=== PATIENT | female | born 1995 | race Two or more races ===

== ENCOUNTER 2024-07-18 23:00 | Emergency (ER) | payer MEDICAID, SELFPAY ==
[2024-07-18 23:00] VITALS: BMI 31.6
[2024-07-18 23:04] VITALS: BP 152/99; PULSE 78; RESP 18; TEMP 36.7; O2SAT 99
--- NOTE | 2024-07-18 23:10 | XR_ITS ---
Examination: Ultrasound soft tissue neck Technique: Multiple high-resolution grayscale sonographic images soft tissue neck Exam date and time: July 28, 2024 1122 hrs. Indications: Right-sided neck pain beginning one week ago. Findings: No cystic or solid mass noted, no lymphadenopathy noted Impression: Negative examination
--- NOTE | 2024-07-18 23:10 | XR_ITS ---
Examination: Thyroid sonography complete Technique: Multiple high resolution grayscale sonographic images thyroid lobes are carful analysis Exam date and time: July 18, 2024 1115 hrs. Indications: Right-sided neck pain beginning one week ago. Findings: Right thyroid 4.8 x 1.0 x 1.8 cm Left thyroid 3.9 x 1.1 x 1.9 cm No thyroid nodules Impression: Negative examination
--- NOTE | 2024-07-18 23:11 | PD.EDNECK ---
ED Neck Injury Pain RME/HPI General Chief Complaint: Neck Pain/Injury Stated Complaint: NECK PAIN Time Seen by Provider: 07/18/24 23:10 Arrival date/time: 07/18/24 23:00 28F with no significant PMH presents to ED with 2 days of R anterior neck pain/swelling w/o fall/trauma. Patient denies URI symptoms, ear pain, dental pain, and muscle tightness. Limitations: no limitations Related Data Previous Rx's ?Medication ?Instructions ?Recorded ibuprofen 800 mg tablet 800 mg PO TID PRN pain #30 tabs 09/02/23 Allergies Allergy/AdvReac Type Severity Reaction Status Date / Time No Known Allergies Allergy Unknown Verified 07/18/24 23:00 Review of Systems Review of Systems Systems Reviewed: All systems reviewed, normal except as documented Constitutional Constitutional: Reports system reviewed and no additional complaints, except as documented, Denies fever(s) and Denies headache(s) ENT Ears, Nose, Mouth, and Throat: Reports as per HPI, Denies disequilibrium, Denies headache(s), Reports neck mass and Reports neck pain Cardiovascular Cardiovascular: Reports system reviewed and no additional complaints, except as documented, Denies chest pain and Denies dyspnea Respiratory Respiratory: Reports system reviewed and no additional complaints, except as documented, Denies cough and Denies dyspnea Gastrointestinal Gastrointestinal: Reports system reviewed and no additional complaints, except as documented, Denies abdominal pain, Denies nausea and Denies vomiting Musculoskeletal Musculoskeletal: Reports neck pain Neurologic Neurologic: Reports system reviewed and no additional complaints, except as documented, Denies confusion, Denies disequilibrium and Denies headache(s) Psychiatric Psychiatric: Denies confusion Past Medical History Past Medical History CARDIAC: Positive Cardiac Disorders and Hypertension; Negative Congestive Heart Failure RESPIRATORY: Negative Chronic Obstructive Pulmonary Disease (COPD) GENITOURINARY: Negative Renal Disease ENDOCRINE: Negative Diabetes Mellitus Type 1 or Diabetes Mellitus Type 2 Surgical History SURGICAL: Positive Abdominal Surgery (appendectomy) and Section Social History SMOKING STATUS: Never smoker ED Exam General Limitations: Present no limitations General appearance: Present alert and in no apparent distress Head Head exam: Present atraumatic Eye Eye exam: Present normal appearance, PERRL and EOMI ENT ENT exam: Present normal exam, normal oropharynx and mucous membranes moist Neck Neck exam: Present full ROM, trachea midline, tenderness (R anterior neck) and lymphadenopathy Chest Chest inspection: Present normal inspection and symmetric chest wall rise Respiratory Respiratory exam: Present normal lung sounds bilaterally Cardiovascular Cardiovascular exam: Present regular rate, normal rhythm and normal heart sounds Abdominal Exam Abdominal exam: Present soft and normal bowel sounds Extremities Exam Extremities exam: Present normal inspection and full ROM Back Exam Back exam: Present normal inspection and full ROM Neurological Exam Neurological exam: Present alert, oriented X3 and CN II-XII intact Psychiatric Psychiatric exam: Present normal affect and normal mood Skin Skin exam: Present warm, dry, intact and normal color Course Quality Measures none Orders Category Date Time Status US soft tissue head neck Stat Exams 07/18/24 23:10 Completed US thyroid Stat Exams 07/18/24 23:10 Completed CBC Stat Lab 07/18/24 23:40 Completed CMP [Comprehensive Metabolic Panel] Stat Lab 07/18/24 23:40 Completed TSH [Thyroid Stimulating Hormone] Stat Lab 07/18/24 23:40 Completed Naproxen [Naprosyn] Med 07/19/24 00:25 Discontinued 500 mg PO X1 ONE Vital Signs Vital signs: Vital Signs Temperature 98.1 F 07/18/24 23:04 Pulse Rate 78 07/18/24 23:04 Respiratory Rate 18 07/18/24 23:04 Blood Pressure 152/99 H 07/18/24 23:04 Pulse Oximetry (%) 99 07/18/24 23:04 Oxygen Delivery Method Room Air 07/18/24 23:04 O2 at 99% on RA and WNLs Neck Pain MDM Narrative MDM Narrative:: 28F with no significant PMH presents to ED with 2 days of R anterior neck pain/swelling w/o fall/trauma. Patient denies URI symptoms, ear pain, dental pain, and muscle tightness. Physical exam reveals mild R anterior neck swelling/tenderness. No redness or area of obvious fluctuance. Clear ENT and lungs. Patient is afebrile, calm, and alert. US normal. No leukocytosis. CMP unremarkable. TSH normal. Likely MSK in nature. Patient data External records reviewed:: [facility] previous records Clinical information provided by:: patient Social determinants that could affect healthcare access:: none Patient has the following chronic illnesses:: none How is presenting disease/condition affected by chronic disease/condition?: no chronic disease Evaluation data The following diagnostics were reviewed and interpreted by me:: lab results and radiology exam(s) Lab and/or radiology exams considered but not ordered:: ordered Interpretation Summary: above Medications / Prescriptions Medications or Prescriptions considered but not ordered:: not ordered Medication administrations:: Medication Administration History Discontinued Medications Naproxen (Naproxen 250 Mg Tablet) 500 mg PO X1 ONE Stop: 07/19/24 00:26 Last Admin: 07/19/24 00:42 Dose: 500 mg Documented By: GIOVANNI n/a Consultations Consultation(s) initiated? (list below): No Diagnosis Neck Differential Diagnosis: disc disorder of cervical region, whiplash injury to neck, closed subluxation of cervical spine, fracture of cervical spine without lesion of spinal cord, cervical radiculopathy, vertebral artery dissection, torticollis, cervical spondylosis, strain of neck muscle and other (thyroid dysfunction, goiter, cervical lymphadenopathy, neck pain) Most likely diagnosis given after review of the tests above:: neck pain Admission Indicated Admission indicated?: not indicated Admission Request Was there a request for admission?: No Disposition Plan Disposition Plan: Discharge Discharge Attestation Discharge Attestation: The patient and all family members were given an opportunity to ask questions and understood the discharge instructions. Discharge instructions specifically effects, indications for sooner follow up or return to the emergency department, and the expected course of current diagnosis. Patient condition: Stable Discharge Plan Plan Patient Disposition: HOME (Self Care) Disposition Comment: Stable Prescriptions/Referrals Prescriptions/Med Rec: No Action ibuprofen 800 mg tablet 800 mg PO TID PRN (Reason: pain) Qty: 30 0RF Referrals: Jalil Bob MD [Primary Care Provider] - In 1 week Problem List Clinical Impression: Neck pain Patient/Caregiver Discharge Instructions Additional Instructions: Please follow-up with PCP within 24-48 hours and return immediately if symptoms worsen. If problem persists, recommend outpatient PT and/or MRI follow-up. In the meantime, rest, use ice/heat, and/or compression. Print Language: Kosovan Stand Alone Forms: Work/School Release, Patient Portal Info Letter JIMMIE/VICKEY Supervising Physician RICH Supervising Physician: Dr. Cruz
[2024-07-19 00:04] LABS: Basophils % (Auto) 0 % (0-2.5); Eosinophils # (Auto) 0.4 Thou/mm3 (0.0-0.5); Eosinophils % (Auto) 5 % (0-10); Hematocrit 35.7 % (36.0-46.0); Immature Granulocytes % (Auto) 0 % (0-0); Immature Granulocytes Auto 0.02 Thou/mm3 (0.00-0.00); Lymphocytes # (Auto) 2.3 Thou/mm3 (1.0-4.8); Lymphocytes % (Auto) 28 % (10-50); Mean Corpuscular HGB Conc 33.6 g/dl (31.0-37.0); Mean Corpuscular Hemoglobin 28.4 pg (25.0-35.0); Mean Corpuscular Volume 85 fL (80-100); Monocytes # (Auto) 0.8 Thou/mm3 (0.0-0.8); Monocytes % (Auto) 10 % (0-12); Neutrophils # (Auto) 4.7 Thou/mm3 (1.8-7.7); Neutrophils % (Auto) 57 % (37-80); Nucleated Red Blood Cell % 0 /100 WBC (0); Platelet Count 320 Thou/mm3 (140-440); RDW Standard Deviation 43.1 fL (36.4-46.3); Red Blood Count 4.22 Miln/mm3 (4.00-5.20); White Blood Count 8.2 Thou/mm3 (3.6-11.0)
[2024-07-19 00:23] LABS: Alanine Aminotransferase 26 U/L (10-49); Albumin, Serum 4.4 gm/dL (3.5-5.0); Albumin/Globulin Ratio 1.4 (1.2-2.2); Alkaline Phosphatase 65 U/L (46-116); Anion Gap 5 (7-16); Aspartate Amino Transferase 17 U/L (0-34); BUN/Creatinine Ratio 15 Ratio (12-20); Bilirubin,Total 0.2 mg/dL (0.3-1.2); Blood Urea Nitrogen 12 mg/dL (9-23); Calcium 9.5 mg/dL (8.3-10.6); Calcium (Corrected) 9.5 mg/dL (8.5-10.1); Carbon Dioxide 26.6 mMol/L (20.0-31.0); Chloride 106 mMol/L (98-107); Creatinine (Component) 0.8 mg/dL (0.6-1.3); Estimated Creatinine Clearance 113.5 mL/min (>60); Globulin 3.1 gm/dL (2.3-3.5); Glucose 82 mg/dL (74-106); Osmolality,Calculated 274 (275-295); Potassium 3.7 mMol/L (3.4-5.1); Sodium 138 mMol/L (136-145); Thyroid Stimulating Hormone 2.58 uIU/mL (0.55-4.78); Total Protein 7.5 gm/dL (5.7-8.2); eGFR > 60 See Note
[2024-07-19] MEDS: NAPROXEN 250 MG TABLET 500 MG PO (00:42)
== END 2024-07-19 00:46 | disposition home or self-care (01) ==
PROVIDERS: Physician Assistant; Emergency Provider Emergency Medicine; PCP Family Medicine
DX: M54.2 Cervicalgia (principal)
CPT/HCPCS: 36415; 76536; 80053; 84443; 85025; 99284; A9270

== ENCOUNTER 2025-04-19 08:55 | Emergency (ER) | payer MEDICAID, SELFPAY ==
[2025-04-19 09:11] VITALS: BP 148/99; PULSE 80; RESP 18; TEMP 37.1; O2SAT 97; BMI 32.3
--- NOTE | 2025-04-19 09:31 | XR_ITS ---
EXAMINATION: Ankle, right 3 views . Technique: Ankle AP, oblique, lateral 3 views Date and time of exam: April 19, 2025 0930 hours INDICATIONS: Injury to the ankle yesterday, ankle pain. FINDINGS: No fracture or dislocation. No foreign body IMPRESSION: No fracture or dislocation
--- NOTE | 2025-04-19 09:41 | EDNOTE_ITS ---
Lower Extremity Injury RME/HPI General Chief Complaint: General Adult/Misc Complain Stated Complaint: Left breast swollen, right ankle injury Time Seen by Provider: 04/19/25 09:10 Source: patient Arrival date/time: 04/19/25 08:55 29-year-old female with no known medical history presents to the emergency room with a chief complaint of swelling and tenderness to her left breast as well as swelling and tenderness to her right ankle. Mode of arrival: ambulatory Limitations: no limitations Related Data Previous Rx's ?Medication ?Instructions ?Recorded ibuprofen 800 mg tablet 800 mg PO TID PRN pain #30 t abs 09/02/23 Allergies Allergy/AdvReac Type Severity Reaction Status Date / Time No Known Allergies Allergy Unknown Verified 04/19/25 09:00 Review of Systems Review of Systems Systems Reviewed: All systems reviewed, normal except as documented Constitutional Constitutional: Reports system reviewed and no additional complaints, except as documented, Denies fatigue, Denies fever(s), Denies headache(s) and Denies weakness Eyes Eyes: Reports system reviewed and no additional complaints, except as documented, Denies blurry vision and Denies change in vision ENT Ears, Nose, Mouth, and Throat: Reports system reviewed and no additional complaints, except as documented, Denies otalgia, Denies headache(s), Denies nasal congestion, Denies throat swelling and Denies vertigo Cardiovascular Cardiovascular: Reports system reviewed and no additional complaints, except as documented, Denies chest pain, Denies dyspnea and Denies dyspnea on exertion Respiratory Respiratory: Reports system reviewed and no additional complaints, except as documented, Denies chest congestion, Denies cough, Denies dyspnea, Denies dyspnea on exertion and Denies wheezing Gastrointestinal Gastrointestinal: Reports system reviewed and no additional complaints, except as documented, Denies abdominal pain, Denies cramping, Denies nausea and Denies vomiting Genitourinary Genitourinary: Reports system reviewed and no additional complaints, except as documented Musculoskeletal Musculoskeletal: Reports system reviewed and no additional complaints, except as documented and Denies back pain Integumentary/Breasts Skin/Breast: Reports system reviewed and no additional complaints, except as documented and Denies wounds Neurologic Neurologic: Reports system reviewed and no additional complaints, except as documented, Denies confusion, Denies headache(s), Denies lack of coordination, Denies vertigo and Denies weakness Psychiatric Psychiatric: Reports system reviewed and no additional complaints, except as documented, Denies anxiety, Denies confusion, Denies depression, Denies paranoia, Denies suicidal ideation and Denies tactile hallucinations Endocrine Endocrine: Reports system reviewed and no additional complaints, except as documented and Denies fatigue Hematologic/Lymphatic Hematologic/Lymphatic: Reports system reviewed and no additional complaints, except as documented and Denies lymphadenopathy Allergic/Immunologic Allergic/Immunologic: Reports system reviewed and no additional complaints, except as documented, Denies throat swelling, Denies urticaria and Denies wheezing Past Medical History Past Medical History CARDIAC: Positive Cardiac Disorders and Hypertension; Negative Congestive Heart Failure RESPIRATORY: Negative Chronic Obstructive Pulmonary Disease (COPD) GENITOURINARY: Negative Renal Disease ENDOCRINE: Negative Diabetes Mellitus Type 1 or Diabetes Mellitus Type 2 Surgical History SURGICAL: Positive Abdominal Surgery (appendectomy) and Section Social History SMOKING STATUS: Never smoker ED Exam General Limitations: Present no limitations General appearance: Present alert and in no apparent distress Head Head exam: Present atraumatic Eye Eye exam: Present normal appearance, PERRL and EOMI ENT ENT exam: Present normal exam, normal oropharynx and mucous membranes moist Neck Neck exam: Present normal inspection, full ROM and trachea midline Chest Chest inspection: Present normal inspection and symmetric chest wall rise Expanded Chest Exam Breast: left: erythema, swelling, tenderness and nipple discharge Respiratory Respiratory exam: Present normal lung sounds bilaterally Cardiovascular Cardiovascular exam: Present regular rate, normal rhythm and normal heart sounds Abdominal Exam Abdominal exam: Present soft and normal bowel sounds Extremities Exam Extremities exam: Present normal inspection and full ROM Expanded Lower Extremity Exam Ankle exam: Present full ROM and tenderness; Absent swelling Foot/toe exam: Present full ROM and tenderness; Absent swelling Back Exam Back exam: Present normal inspection and full ROM Neurological Exam Neurological exam: Present alert, oriented X3 and CN II-XII intact Psychiatric Psychiatric exam: Present normal affect and normal mood Skin Skin exam: Present warm, dry, intact and normal color Course Quality Measures none Orders Category Date Time Status edgardo wrap [Splint / Immobilizer] STAT Care 04/19/25 11:00 Completed XR ankle comp RT min 3V Stat Exams 04/19/25 09:31 Completed Vital Signs Vital signs: Vital Signs Temperature 98.7 F 04/19/25 09:11 Pulse Rate 80 04/19/25 09:11 Respiratory Rate 18 04/19/25 09:11 Blood Pressure 148/99 H 04/19/25 09:11 Pulse Oximetry (%) 97 04/19/25 09:11 Oxygen Delivery Method Room Air 04/19/25 09:11 Extremity Injury, Lower MDM Narrative MDM Narrative:: 29-year-old female with no known medical history presents to the emergency room with a chief complaint of swelling and tenderness to her left breast as well as swelling and tenderness to her right ankle. Patient is hemodynamically stable and in no apparent distress. Patient is afebrile not tachycardic not tachypneic Physical examination shows tenderness and pain to the patient's left breast. Physical examination shows some erythema and some tenderness. Patient states she had an ultrasound done by her primary care provider which was negative for any cystic mass. The patient is currently on Augmentin medication and is on the appropriate treatment for her mastitis diagnosis. The patient also has some tenderness and pain to her right ankle after a ground- level fall that occurred yesterday. Patient has full range of motion is able to ambulate but has tenderness with palpation of her ankle. X-ray of the ankle was completed and it was negative for any acute findings Patient was discharged and educated to follow-up with primary care provider in the next 24 to 48 hours and return to the emergency room for any evidence of worsening signs or symptoms Patient data External records reviewed:: [facility] previous records Clinical information provided by:: patient Social determinants that could affect healthcare access:: none Patient has the following chronic illnesses:: No chronic illness How is presenting disease/condition affected by chronic disease/condition?: no chronic disease Evaluation data The following diagnostics were reviewed and interpreted by me:: lab results and radiology exam(s) Lab and/or radiology exams considered but not ordered:: Labs and radiology exams considered in order Interpretation Summary: N/A Medications / Prescriptions Medications or Prescriptions considered but not ordered:: Medication not given Medication administrations:: Medication not given Consultations Consultation(s) initiated? (list below): No Diagnosis Extremity Injury, Lower Differential Diagnosis: ankle sprain and strain and ankle fracture Most likely diagnosis given after review of the tests above:: Ankle sprain and strain Admission Indicated Admission indicated?: not indicated Admission Request Was there a request for admission?: No Disposition Plan Disposition Plan: Discharge Discharge Attestation Discharge Attestation: The patient and all family members were given an opportunity to ask questions and understood the discharge instructions. Discharge instructions specifically effects, indications for sooner follow up or return to the emergency department, and the expected course of current diagnosis. Patient condition: Stable Discharge Plan Plan Patient Disposition: HOME (Self Care) Discharge Disposition comment: Stable Prescriptions/Referrals Prescriptions/Med Rec: No Action ibuprofen 800 mg tablet 800 mg PO TID PRN (Reason: pain) Qty: 30 0RF Referrals: Jalil Bob MD [Primary Care Provider] - In 1 week Problem List Clinical Impression: Sprain and strain of ankle Patient/Caregiver Discharge Instructions Education Materials: ED Ankle Sprain (Adult) Additional Instructions: Please follow-up with your primary care provider in the next 24 to 48 hours Please continue to take the antibiotics that were prescribed for your breast infection X-ray of your ankle was completed and was negative for any acute fracture or dislocation Patient was discharged and educated to follow-up with primary care provider in the next 24 to 48 hours and return to the emergency room for any evidence of worsening signs or symptoms Print Language: Kazakh Stand Alone Forms: Maryam Award Info., Patient Portal Info Letter PA/[employer] Supervising Physician PA/[employer] Supervising Physician: Dr. Kevin GERONIMO Attestation MD Attestation The patient was seen by the midlevel practitioner. I, the co-signing physician, was present during the entire ER visit. While I did not physically examine the patient, I was available for consultation as needed. I agree with the plan and documentation.
== END 2025-04-19 11:25 | disposition home or self-care (01) ==
PROVIDERS: Emergency Provider Family Medicine; PCP Family Medicine
DX: S93.401A Sprain of unspecified ligament of right ankle, initial encounter (principal); S96.911A Strain of unspecified muscle and tendon at ankle and foot level, right foot, initial encounter; X50.0XXA Overexertion from strenuous movement or load, initial encounter
CPT/HCPCS: 73610; 99284

== ENCOUNTER → 2025-05-04 | Outpatient (BNVA) | payer MEDICAID, SELFPAY | END | disposition home or self-care (01) | PROVIDERS: PCP Nurse Practitioner Family; Referring Provider Nurse Practitioner Family; Visit Provider Nurse Practitioner Family | DX: Z48.00 Encounter for change or removal of nonsurgical wound dressing (principal) | CPT/HCPCS: 96372; J1885 ==

== ENCOUNTER → 2025-05-05 | Outpatient (BNVA) | payer MEDICAID, SELFPAY | END | disposition home or self-care (01) | PROVIDERS: PCP Nurse Practitioner Family; Referring Provider Nurse Practitioner Family; Visit Provider Nurse Practitioner Family | DX: Z48.00 Encounter for change or removal of nonsurgical wound dressing (principal) ==

== ENCOUNTER → 2025-05-06 | Outpatient (BNVA) | payer MEDICAID, SELFPAY | END | disposition home or self-care (01) | PROVIDERS: PCP Nurse Practitioner Family; Referring Provider Nurse Practitioner Family; Visit Provider Nurse Practitioner Family | DX: Z48.00 Encounter for change or removal of nonsurgical wound dressing (principal) | CPT/HCPCS: 99214 ==

== ENCOUNTER → 2025-05-12 | Outpatient (BNVA) | payer MEDICAID, SELFPAY | END | disposition home or self-care (01) | PROVIDERS: PCP Nurse Practitioner Primary Care; Referring Provider Nurse Practitioner Primary Care; Visit Provider Nurse Practitioner Primary Care | DX: N63.21 Unspecified lump in the left breast, upper outer quadrant (principal); S21.002D Unspecified open wound of left breast, subsequent encounter; X58.XXXD Exposure to other specified factors, subsequent encounter; L02.818 Cutaneous abscess of other sites | CPT/HCPCS: 99215 ==

== ENCOUNTER → 2025-05-18 | Outpatient (BNVA) | payer MEDICAID, SELFPAY | END | disposition home or self-care (01) | PROVIDERS: PCP Nurse Practitioner Primary Care; Referring Provider Nurse Practitioner Primary Care; Visit Provider Nurse Practitioner Primary Care | DX: Z00.00 Encounter for general adult medical examination without abnormal findings (principal); N63.21 Unspecified lump in the left breast, upper outer quadrant; S21.002D Unspecified open wound of left breast, subsequent encounter; X58.XXXD Exposure to other specified factors, subsequent encounter; Z11.3 Encounter for screening for infections with a predominantly sexual mode of transmission; E04.9 Nontoxic goiter, unspecified; Z13.228 Encounter for screening for other metabolic disorders; J30.89 Other allergic rhinitis; Z71.89 Other specified counseling; Z71.85 Encounter for immunization safety counseling; E66.9 Obesity, unspecified; Z68.31 Body mass index [BMI] 31.0-31.9, adult | CPT/HCPCS: 99173; 99395; G0439 ==

== ENCOUNTER → 2025-06-08 | Outpatient (BNVA) | payer MEDICAID, SELFPAY | END | disposition home or self-care (01) | PROVIDERS: PCP Nurse Practitioner Primary Care; Referring Provider Nurse Practitioner Primary Care; Visit Provider Nurse Practitioner Primary Care | DX: E78.1 Pure hyperglyceridemia (principal); E55.9 Vitamin D deficiency, unspecified | CPT/HCPCS: 99212; G0463 ==

== ENCOUNTER → 2025-07-26 | Outpatient (BNVA) | payer SELFPAY | END | disposition home or self-care (01) | PROVIDERS: PCP Nurse Practitioner Family; Referring Provider Nurse Practitioner Family; Visit Provider Nurse Practitioner Family | DX: K62.89 Other specified diseases of anus and rectum (principal); R19.8 Other specified symptoms and signs involving the digestive system and abdomen | CPT/HCPCS: 99214 ==

== ENCOUNTER → 2025-08-02 | Outpatient (BNVA) | payer MEDICAID, SELFPAY | END | disposition home or self-care (01) | PROVIDERS: PCP Nurse Practitioner Family; Referring Provider Nurse Practitioner Family; Visit Provider Nurse Practitioner Family | DX: N61.1 Abscess of the breast and nipple (principal) | CPT/HCPCS: 96372; 99214; A4216; J0696 ==

== ENCOUNTER → 2025-08-04 | Outpatient (BNVA) | payer MEDICAID, SELFPAY | END | disposition home or self-care (01) | PROVIDERS: PCP Nurse Practitioner Family; Referring Provider Nurse Practitioner Family; Visit Provider Nurse Practitioner Family | DX: Z71.2 Person consulting for explanation of examination or test findings (principal); N61.1 Abscess of the breast and nipple; N63.21 Unspecified lump in the left breast, upper outer quadrant | CPT/HCPCS: 96372; 99213; A4216; J0696 ==

== ENCOUNTER → 2025-08-08 | Outpatient (CLI) | payer MEDICAID, SELFPAY ==
[2025-08-04 08:25] LABS: HCG Qualitative,Urine Negative
== END | disposition home or self-care (01) ==
LOC: SMRI 15:38
PROVIDERS: PCP Nurse Practitioner Family; Referring Provider Nurse Practitioner Family; Visit Provider Nurse Practitioner Family
DX: Z53.8 Procedure and treatment not carried out for other reasons (principal); Z32.00 Encounter for pregnancy test, result unknown
CPT/HCPCS: 81025

== ENCOUNTER → 2025-08-13 | Outpatient (BNVA) | payer MEDICAID, SELFPAY | END | disposition home or self-care (01) | PROVIDERS: PCP Nurse Practitioner Primary Care; Referring Provider Nurse Practitioner Primary Care; Visit Provider Nurse Practitioner Primary Care | DX: N61.1 Abscess of the breast and nipple (principal); Z71.2 Person consulting for explanation of examination or test findings; N63.21 Unspecified lump in the left breast, upper outer quadrant | CPT/HCPCS: 99213 ==

== ENCOUNTER → 2025-08-16 | Outpatient (CLI) | payer MEDICAID, SELFPAY ==
[2025-08-13 07:51] LABS: HCG Qualitative,Urine Negative
--- NOTE | 2025-08-16 07:00 | XR_ITS ---
EXAMINATION: MRI bilateral breast without intravenous contrast MRI bilateral breast with intravenous contrast Date and time: August,, 0756 hours INDICATIONS: Open nonhealing wound left breast, diagnosis initial encounter cutaneous abscess unspecified lump in the left breast left breast abscess TECHNIQUE AND FINDINGS: Bilateral breast MRI images obtained pre and post 18 cc gadolinium Asymmetric signal in the lateral left breast, 4.9 x 2.4 cm with diffuse left breast skin thickening No chest wall mass Also subtle increased signal in the retroareolar region left breast Postcontrast images demonstrated massive increased vascularity to the entire retroareolar and outer upper portion of the left breast, increased vascularity also in the left axillary region with better appreciation of enlarged left axillary lymph nodes, measuring up to 21 mm IMPRESSION: BI-RADS Category 0: Incomplete: Need additional imaging evaluation Vascular masses retroareolar and outer portion left breast which may represent left breast abscesses Addendum will be made when the [facility] [employer] software is available for interpretation Recommend follow-up bilateral breast sonography with a radiologist in attendance
== END | disposition home or self-care (01) ==
LOC: SMRI 06:41
PROVIDERS: PCP Nurse Practitioner Family; Referring Provider Nurse Practitioner Family; Visit Provider Nurse Practitioner Family
DX: N61.1 Abscess of the breast and nipple (principal); S21.002D Unspecified open wound of left breast, subsequent encounter; X58.XXXD Exposure to other specified factors, subsequent encounter; N63.42 Unspecified lump in left breast, subareolar; Z32.00 Encounter for pregnancy test, result unknown
CPT/HCPCS: 77049; 81025; A9577; C8908

== ENCOUNTER → 2025-08-20 | Outpatient (BNVA) | payer MEDICAID, SELFPAY | END | disposition home or self-care (01) | PROVIDERS: PCP Nurse Practitioner Primary Care; Referring Provider Nurse Practitioner Primary Care; Visit Provider Nurse Practitioner Primary Care | DX: N63.21 Unspecified lump in the left breast, upper outer quadrant (principal) | CPT/HCPCS: 99212; G0463 ==

== ENCOUNTER → 2025-08-30 | Outpatient (CLI) | payer MEDICAID, SELFPAY ==
--- NOTE | 2025-08-30 12:13 | XR_ITS ---
Examination: Breast ultrasound, unilateral, left complete Date and time of exam: August 30, 2025, 1251 hours INDICATIONS: MRI breast August 16, 2025 vascular masses retroareolar and outer portion left breast, status post left retroareolar post hematoma drainage April 2025 Technique: Real-time cobos scale ultrasonographic imaging performed left breast including all 4 quadrants as well as nipple retroareolar and axillary region. Findings: 1:00 hypoechoic mass 15 x 10 x 19 mm fairly circumscribed IMPRESSION: BI-RADS Category 3: Probably benign findings Recommend 1 additional 6-month left breast sonogram follow-up to document stability of solid nodules described above
== END | disposition home or self-care (01) ==
PROVIDERS: PCP Nurse Practitioner Primary Care; Referring Provider Nurse Practitioner Primary Care; Visit Provider Nurse Practitioner Primary Care
DX: N63.21 Unspecified lump in the left breast, upper outer quadrant (principal)
CPT/HCPCS: 76641